=== PATIENT | female | born 1980 ===

== ENCOUNTER 2017-02-14 21:45 | Emergency (ER) | payer SELFPAY ==
[2017-02-14 22:10] VITALS: BP 138/83; PULSE 62; RESP 18; TEMP 98.2; O2SAT 98
--- NOTE | 2017-02-14 22:42 | ED PDOC ---
HPI: CCC, URI, Sore Throat Time Seen by Provider: 02/14/17 22:15 Chief Complaint (Nursing): ENT Problem History Per: Patient Additional Complaint(s): Patient having b/l eye redness, itching w/ yellow discharge. Patient also has throat pain. No fever. (+) sinus tenderness Past Medical History Reviewed: Nursing Documentation, Vital Signs Vital Signs: Last Vital Signs Temp 98.2 F 02/14/17 22:07 Pulse 62 02/14/17 22:07 Resp 18 02/14/17 22:07 BP 138/83 02/14/17 22:07 Pulse Ox 98 02/14/17 22:41 - Medical History PMH: No Chronic Diseases - Surgical History Surgical History: Hernia Repair - Family History Family History: States: No Known Family Hx - Living Arrangements Living Arrangements: With Family - Social History Current smoker - smoking cessation education provided: No Alcohol: None Drugs: Denies - Immunization History Hx Tetanus Toxoid Vaccination: No Hx Influenza Vaccination: No Hx Pneumococcal Vaccination: No - Home Medications Home Medications: Ambulatory Orders Medication Instructions Recorded Ibuprofen [Motrin] 600 mg PO Q6 PRN #30 tab 06/19/13 oxyCODONE/Acetaminophen [Percocet 1 - 2 tab PO Q6 PRN #10 tab 11/18/14 5/325 mg Tab] Ciprofloxacin/Ciprofloxa HCl 500 mg PO BID #14 tab 03/22/16 [Ciprofloxacin] Cyclobenzaprine [Flexeril] 10 mg PO Q8 PRN #15 tab 03/22/16 Naproxen [Naprosyn] 500 mg PO BID #20 tab 03/22/16 traMADol [Ultram] 50 mg PO TID PRN #15 tab 03/22/16 Azithromycin [Zithromax] 500 mg PO DAILY #6 tab 11/08/16 Methylprednisolone [Medrol Dose 4 mg PO DAILY #21 mg 11/08/16 Pack (21 tabs)] Promethazine HCl/Codeine 5 ml PO HS #80 ml 11/08/16 [Prometh-Codein 6.25-10 mg/5 ml] Amoxicillin/Clavulanate [Augmentin 1 tab PO BID #14 tab 02/14/17 875 MG-125 MG] Methylprednisolone [Medrol Dose 4 mg PO DAILY #21 mg 02/14/17 Pack (21 tabs)] - Allergies Allergies/Adverse Reactions: Allergies Allergy/AdvReac Type Severity Reaction Status Date / Time No Known Allergies Allergy Verified 11/08/16 21:30 Review of Systems ROS Statement: Except As Marked, All Systems Reviewed And Found Negative ENT: Positive for: Nose Congestion, Throat Pain Physical Exam - Reviewed Nursing Documentation Reviewed: Yes Vital Signs Reviewed: Yes - Physical Exam Appears: Positive for: Well, Non-toxic, No Acute Distress Head Exam: Positive for: ATRAUMATIC, NORMAL INSPECTION, NORMOCEPHALIC Skin: Positive for: Normal Color, Warm, DRY Eye Exam: Positive for: EOMI, Normal appearance, PERRL ENT: Positive for: Normal ENT Inspection, TM Is/Are (WNL), Nasal Congestion, Other (Sinus tenderness to maxillary). Negative for: Pharyngeal Erythema, Tonsillar Exudate, Tonsillar Swelling Neck: Positive for: Normal, Painless ROM Cardiovascular/Chest: Positive for: Regular Rate, Rhythm Respiratory: Positive for: CNT, Normal Breath Sounds Gastrointestinal/Abdominal: Positive for: Normal Exam, Bowel Sounds, Soft Back: Positive for: Normal Inspection Extremity: Positive for: Normal ROM Neurologic/Psych: Positive for: Alert, Oriented - ECG O2 Sat by Pulse Oximetry: 98 Medical Decision Making Medical Decision Making: Started on Augmentin and Medrol dose pack Disposition - Clinical Impression Clinical Impression: Sinusitis - Patient ED Disposition Is Patient to be Admitted: No - Disposition Disposition: Routine/Home Disposition Time: 23:10 Condition: STABLE Prescriptions: Amoxicillin/Clavulanate [Augmentin 875 MG-125 MG] 1 tab PO BID #14 tab Methylprednisolone [Medrol Dose Pack (21 tabs)] 4 mg PO DAILY #21 mg Instructions: Sinusitis (ED)
== END 2017-02-14 23:12 | disposition home or self-care (01) ==
LOC: H.ER 21:45
DX: J32.9 Chronic sinusitis, unspecified (principal); J02.9 Acute pharyngitis, unspecified; H57.8 Other specified disorders of eye and adnexa

== ENCOUNTER 2017-12-26 21:12 | Emergency (ER) | payer SELFPAY ==
--- NOTE | 2017-12-26 21:49 | ED PDOC ---
HPI: Chest Pain Time Seen by Provider: 12/26/17 21:30 Chief Complaint (Nursing): Chest Pain Chief Complaint (Provider): chest pain History Per: Patient History/Exam Limitations: no limitations Onset/Duration Of Symptoms: Days (2), Waxing/Waning Current Symptoms Are (Timing): Still Present Exacerbating Factors: Turning, Movement, Deep Breathing Additional Complaint(s): 37 y/o female presents with intermittent left-sided chest pain x 2 days. Patient states she woke up with the pain, which is worsened by movement, to touch, and deep breaths. Denies fever, nausea/vomiting, shortness of breath, palpitations, abdominal pain, changes in bowel movements, urinary symptoms, leg pain/swelling, recent travel. Past Medical History Reviewed: Historical Data, Nursing Documentation, Vital Signs Vital Signs: Last Vital Signs Temp 98.4 F 12/26/17 21:23 Pulse 69 12/26/17 21:23 Resp 16 12/26/17 21:23 BP 154/88 H 12/26/17 21:23 Pulse Ox 99 12/27/17 00:07 - Medical History PMH: No Chronic Diseases - Surgical History Surgical History: Hernia Repair - Family History Family History: States: No Known Family Hx - Living Arrangements Living Arrangements: With Family - Immunization History Hx Tetanus Toxoid Vaccination: No Hx Influenza Vaccination: No Hx Pneumococcal Vaccination: No - Home Medications Home Medications: Ambulatory Orders Medication Instructions Recorded Ibuprofen [Motrin] 600 mg PO Q6 PRN #30 tab 06/19/13 oxyCODONE/Acetaminophen [Percocet 1 - 2 tab PO Q6 PRN #10 tab 11/18/14 5/325 mg Tab] Ciprofloxacin/Ciprofloxa HCl 500 mg PO BID #14 tab 03/22/16 [Ciprofloxacin] Cyclobenzaprine [Flexeril] 10 mg PO Q8 PRN #15 tab 03/22/16 Naproxen [Naprosyn] 500 mg PO BID #20 tab 03/22/16 traMADol [Ultram] 50 mg PO TID PRN #15 tab 03/22/16 Azithromycin [Zithromax] 500 mg PO DAILY #6 tab 11/08/16 Methylprednisolone [Medrol Dose 4 mg PO DAILY #21 mg 11/08/16 Pack (21 tabs)] Promethazine HCl/Codeine 5 ml PO HS #80 ml 11/08/16 [Prometh-Codein 6.25-10 mg/5 ml] Amoxicillin/Clavulanate [Augmentin 1 tab PO BID #14 tab 02/14/17 875 MG-125 MG] Methylprednisolone [Medrol Dose 4 mg PO DAILY #21 mg 02/14/17 Pack (21 tabs)] Cyclobenzaprine [Cyclobenzaprine 10 mg PO BID PRN #14 tab 12/27/17 HCl] Naproxen [Naprosyn] 500 mg PO Q12 PRN #20 tablet 12/27/17 - Allergies Allergies/Adverse Reactions: Allergies Allergy/AdvReac Type Severity Reaction Status Date / Time No Known Allergies Allergy Verified 11/08/16 21:30 [place] Risk Score for UA/NSTEMI - [place] Risk Score Age > 64: NO 3 or more CAD Risk Factors: NO Known CAD (Stenosis greater than 50%): NO Aspirin use in past 7 days: NO Severe Angina: NO EKG ST changes greater than 0.5mm: NO Positive Cardiac Marker: NO [place] Score: 0 Risk %: 5% Review of Systems ROS Statement: Except As Marked, All Systems Reviewed And Found Negative Cardiovascular: Positive for: Chest Pain Physical Exam - Reviewed Nursing Documentation Reviewed: Yes Vital Signs Reviewed: Yes - Physical Exam Appears: Positive for: Well, Non-toxic, No Acute Distress Head Exam: Positive for: ATRAUMATIC, NORMAL INSPECTION, NORMOCEPHALIC Skin: Positive for: Normal Color Eye Exam: Positive for: Normal appearance ENT: Positive for: Normal ENT Inspection Cardiovascular/Chest: Positive for: Regular Rate, Rhythm. Negative for: Chest Non Tender (tender to palpate left anterior chest wall; no ecchymosis, edema, flail chest noted) Respiratory: Positive for: Normal Breath Sounds Gastrointestinal/Abdominal: Positive for: Normal Exam Back: Positive for: Normal Inspection Extremity: Positive for: Normal ROM Neurologic/Psych: Positive for: Alert, Oriented - Laboratory Results Result Diagrams: 12/26/17 22:08 12/26/17 22:08 - ECG ECG: Positive for: Viewed By Me (reviewed by ED attending) ECG Rhythm: Positive for: Sinus Rhythm, Nonspecific Changes O2 Sat by Pulse Oximetry: 99 - Radiology X-Ray: Viewed By Me X-Ray Interpretation: No Acute Disease - Progress ED Course And Treament: labs, ekg, chest xray, IV toradol, PO flexeril On re-eval, patient states she is feeling better. Patient educated on findings, discharged with rx Naproxen, Flexeril. Advised follow up PMD 2-3 days. Ice/warm compresses Return precautions given. Disposition - Clinical Impression Clinical Impression: Chest wall pain - Patient ED Disposition Is Patient to be Admitted: No Counseled Patient/Family Regarding: Studies Performed, Diagnosis, Need For Followup, Rx Given - Disposition Disposition: Routine/Home Disposition Time: 00:20 Condition: IMPROVED Prescriptions: Cyclobenzaprine [Cyclobenzaprine HCl] 10 mg PO BID PRN #14 tab PRN Reason: Muscle Spasm Naproxen [Naprosyn] 500 mg PO Q12 PRN #20 tablet PRN Reason: Pain, Moderate (4-7) Instructions: Costochondritis (DC) Forms: [employer] (Vietnamese)
[2017-12-26 22:13] LABS: BASO # 0.1 K/uL (0.0-0.2); BASO % 0.7 % (0.0-2.0); EOS # 0.3 K/uL (0.0-0.7); EOS % 4.1 % (0.0-4.0); HEMOGLOBIN 13.1 g/dL (12.0-16.0); LYMPH # 3.1 K/uL (1.0-4.3); LYMPH % 36.8 % (20.0-40.0); MEAN CELL VOLUME 88.1 fl (81.0-99.0); MEAN CORPUSCULAR HEMOGLOBIN 29.8 pg (27.0-31.0); MEAN CORPUSCULAR HGB CONC 33.9 g/dL (33.0-37.0); MEAN PLATELET VOLUME 9.9 fl (7.2-11.7); MONO # 0.6 K/uL (0.0-0.8); MONO % 7.1 % (0.0-10.0); NEUT # 4.3 K/uL (1.8-7.0); NEUT % 51.3 % (50.0-75.0); NRBC % 0.2 % (0.0-0.0); RBC 4.39 Mil/uL (3.80-5.20); RED CELL DISTRIBUTION WIDTH 13.8 % (11.5-14.5); WHITE BLOOD COUNT 8.5 K/uL (4.8-10.8)
[2017-12-26 22:23] LABS: ALB/GLOB RATIO 1.2 (1.0-2.1); ALBUMIN 4.2 g/dL (3.5-5.0); ALT/SGPT 36 U/L (9-52); AST/SGOT 26 U/L (14-36); BLOOD UREA NITROGEN 17 mg/dl (7-17); CALCIUM 9.1 mg/dL (8.4-10.2); GFR AFRICAN-AMERICAN > 60; GFR NON-AFRICAN AMERICAN > 60
[2017-12-27 00:32] VITALS: BP 124/70; PULSE 76; RESP 14; TEMP 98; O2SAT 98
--- NOTE | 2017-12-27 09:09 | RAD ---
HISTORY: chest pain COMPARISON: Chest radiograph dated 11/08/2016. TECHNIQUE: Chest PA and lateral FINDINGS: LUNGS: No active pulmonary disease. PLEURA: No significant pleural effusion identified. No pneumothorax apparent. CARDIOVASCULAR: Normal. OSSEOUS STRUCTURES: No significant abnormalities. VISUALIZED UPPER ABDOMEN: Normal. OTHER FINDINGS: None. IMPRESSION: No active disease.
--- NOTE | 2017-12-30 18:28 | CARD ---
APPROVED REPORT EKG Measurement Heart [id number] <Conclusion> Normal sinus rhythm Nonspecific ST and T wave abnormality Abnormal ECG
== END 2017-12-27 00:32 | disposition home or self-care (01) ==
LOC: H.ER 21:12
DX: R07.89 Other chest pain (principal)
CPT/HCPCS: 71046; 80053; 84484; 85025; 93005; 99282; J1885

== ENCOUNTER 2018-06-27 18:22 | Emergency (ER) | payer SELFPAY ==
[2018-06-27 18:59] VITALS: BP 144/81; PULSE 73; RESP 18; TEMP 98.4; O2SAT 99
--- NOTE | 2018-06-27 19:25 | ED PDOC ---
Lower Extremity Pain/Injury Time Seen by Provider: 06/27/18 18:30 Chief Complaint (Nursing): Lower Extremity Problem/Injury Chief Complaint (Provider): right foot pain x 2-3 months History Per: Patient History/Exam Limitations: no limitations Onset/Duration Of Symptoms: Days Current Symptoms Are (Timing): Still Present Additional Complaint(s): 38 yo female with no medical problems presents for evaluation of right foot pain x 2-3 months. Pt states she has not taken anything for the pain. Pt currently in sandals because she applied susana wrap to the area. Pt denies trauma. Past Medical History Reviewed: Historical Data, Nursing Documentation, Vital Signs Vital Signs: Last Vital Signs Temp 98.4 F 06/27/18 18:57 Pulse 73 06/27/18 18:57 Resp 18 06/27/18 18:57 BP 144/81 06/27/18 18:57 Pulse Ox 99 06/27/18 18:57 - Medical History PMH: No Chronic Diseases - Surgical History Surgical History: Hernia Repair - Family History Family History: States: No Known Family Hx - Immunization History Hx Tetanus Toxoid Vaccination: No Hx Influenza Vaccination: No Hx Pneumococcal Vaccination: No - Home Medications Home Medications: Ambulatory Orders Medication Instructions Recorded Ibuprofen [Motrin] 600 mg PO Q6 PRN #30 tab 06/19/13 oxyCODONE/Acetaminophen [Percocet 1 - 2 tab PO Q6 PRN #10 tab 11/18/14 5/325 mg Tab] Ciprofloxacin/Ciprofloxa HCl 500 mg PO BID #14 tab 03/22/16 [Ciprofloxacin] Cyclobenzaprine [Flexeril] 10 mg PO Q8 PRN #15 tab 03/22/16 Naproxen [Naprosyn] 500 mg PO BID #20 tab 03/22/16 traMADol [Ultram] 50 mg PO TID PRN #15 tab 03/22/16 Azithromycin [Zithromax] 500 mg PO DAILY #6 tab 11/08/16 Methylprednisolone [Medrol Dose 4 mg PO DAILY #21 mg 11/08/16 Pack (21 tabs)] Promethazine HCl/Codeine 5 ml PO HS #80 ml 11/08/16 [Prometh-Codein 6.25-10 mg/5 ml] Amoxicillin/Clavulanate [Augmentin 1 tab PO BID #14 tab 02/14/17 875 MG-125 MG] Methylprednisolone [Medrol Dose 4 mg PO DAILY #21 mg 02/14/17 Pack (21 tabs)] Cyclobenzaprine [Cyclobenzaprine 10 mg PO BID PRN #14 tab 12/27/17 HCl] Naproxen [Naprosyn] 500 mg PO Q12 PRN #20 tablet 12/27/17 Naproxen [Naprosyn] 500 mg PO BID PRN #20 tablet 06/27/18 - Allergies Allergies/Adverse Reactions: Allergies Allergy/AdvReac Type Severity Reaction Status Date / Time No Known Allergies Allergy Verified 11/08/16 21:30 Review of Systems ROS Statement: Except As Marked, All Systems Reviewed And Found Negative Constitutional: Negative for: Fever, Chills Musculoskeletal: Positive for: Foot Pain Skin: Negative for: Jaundice, Bruising Physical Exam - Reviewed Nursing Documentation Reviewed: Yes Vital Signs Reviewed: Yes - Physical Exam Appears: Positive for: Well, Non-toxic, No Acute Distress Head Exam: Positive for: ATRAUMATIC, NORMAL INSPECTION, NORMOCEPHALIC Skin: Positive for: Normal Color, Warm, DRY Eye Exam: Positive for: Normal appearance ENT: Positive for: Normal ENT Inspection Neck: Positive for: Normal, Painless ROM Cardiovascular/Chest: Negative for: Bradycardia, Tachycardia Respiratory: Negative for: Accessory Muscle Use, Respiratory Distress Back: Positive for: Normal Inspection Extremity: Positive for: Normal ROM, Tenderness (right plantar fasciatis) Neurologic/Psych: Positive for: Alert, Oriented - ECG O2 Sat by Pulse Oximetry: 99 Medical Decision Making Medical Decision Making: Discussed stretching, icing and anti-inflammatory medications with patient. Disposition - Clinical Impression Clinical Impression: Plantar fasciitis - Patient ED Disposition Is Patient to be Admitted: No Counseled Patient/Family Regarding: Diagnosis, Need For Followup, Rx Given - Disposition Referrals: [facility] [Outside] Disposition: Routine/Home Disposition Time: 19:29 Condition: STABLE Prescriptions: Naproxen [Naprosyn] 500 mg PO BID PRN #20 tablet PRN Reason: Pain Instructions: Heel Pain (Caused by Plantar Fasciitis) Print Language: QATARI
== END 2018-06-27 19:55 | disposition home or self-care (01) ==
LOC: H.ER 18:22
DX: M72.2 Plantar fascial fibromatosis (principal)

== ENCOUNTER 2018-10-21 18:51 | Emergency (ER) | payer SELFPAY ==
[2018-10-21 19:06] VITALS: BP 146/86; PULSE 71; RESP 16; TEMP 98.5; O2SAT 99
[2018-10-21] MEDS ORDERED: Tdap Vaccine 0.5 ml Vial (10-64 yrs) IM ONE (19:31)
--- NOTE | 2018-10-21 19:31 | ED PDOC ---
HPI: Trauma/Fall - HPI Time Seen by Provider: 10/21/18 19:07 Chief Complaint (Nursing): Trauma Chief Complaint (Provider): Head Injury History Per: Patient History/Exam Limitations: no limitations Injury Occurred (Timing): Today @ (1000) Additional Complaint(s): 38 year old female presents to the ED for evaluation of a head injury that happened at 1000 this morning. Patient reports she was standing at her sink when the mirror fell off the wall and hit her head, sustaining a laceration which she used coffee grounds to control the bleeding. This afternoon, just prior to arrival, the laceration began bleeding again after showering, prompting evaluation. She took Motrin at 1100, but notes having a mild headache all day described as a throbbing sensation confined to the site of the cut. Otherwise denies loss of consciousness, nausea, vomiting, visual changes, dizziness, foreign body sensation, and other complaints. PMD: Clinic in [place] Tetanus: not UTD Past Medical History Reviewed: Historical Data, Nursing Documentation, Vital Signs Vital Signs: Last Vital Signs Temp 98.5 F 10/21/18 19:03 Pulse 71 10/21/18 19:03 Resp 16 10/21/18 19:03 BP 146/86 10/21/18 19:03 Pulse Ox 99 10/21/18 19:03 - Medical History Other PMH: abdominal hernia - Surgical History Surgical History: Hernia Repair - Family History Family History: States: Unknown Family Hx - Social History Current smoker - smoking cessation education provided: No Alcohol: Social Drugs: Denies - Home Medications Home Medications: Ambulatory Orders Medication Instructions Recorded Ibuprofen [Motrin] 600 mg PO Q6 PRN #30 tab 06/19/13 oxyCODONE/Acetaminophen [Percocet 1 - 2 tab PO Q6 PRN #10 tab 11/18/14 5/325 mg Tab] Ciprofloxacin/Ciprofloxa HCl 500 mg PO BID #14 tab 03/22/16 [Ciprofloxacin] Naproxen [Naprosyn] 500 mg PO BID #20 tab 03/22/16 RX: Cyclobenzaprine [Flexeril] 10 mg PO Q8 PRN #15 tab 03/22/16 RX: traMADol [Ultram] 50 mg PO TID PRN #15 tab 03/22/16 Azithromycin [Zithromax] 500 mg PO DAILY #6 tab 11/08/16 Methylprednisolone [Medrol Dose 4 mg PO DAILY #21 mg 11/08/16 Pack (21 tabs)] Promethazine HCl/Codeine 5 ml PO HS #80 ml 11/08/16 [Prometh-Codein 6.25-10 mg/5 ml] Amoxicillin/Clavulanate [Augmentin 1 tab PO BID #14 tab 02/14/17 875 MG-125 MG] Methylprednisolone [Medrol Dose 4 mg PO DAILY #21 mg 02/14/17 Pack (21 tabs)] Cyclobenzaprine [Cyclobenzaprine 10 mg PO BID PRN #14 tab 12/27/17 HCl] RX: Naproxen [Naprosyn] 500 mg PO Q12 PRN #20 tablet 12/27/17 RX: Naproxen [Naprosyn] 500 mg PO BID PRN #20 tablet 06/27/18 Acetaminophen [Acetaminophen 8 650 mg PO Q8 PRN #21 tablet.er 10/21/18 Hour] - Allergies Allergies/Adverse Reactions: Allergies Allergy/AdvReac Type Severity Reaction Status Date / Time No Known Allergies Allergy Verified 10/21/18 19:02 Review of Systems ROS Statement: Except As Marked, All Systems Reviewed And Found Negative Eyes: Negative for: Vision Change Gastrointestinal: Negative for: Nausea, Vomiting Skin: Positive for: Other (laceration to head) Neurological: Positive for: Headache (mild, described as throbbing to the site of the laceration). Negative for: Dizziness, Other (loss of consciousness) Physical Exam - Reviewed Nursing Documentation Reviewed: Yes Vital Signs Reviewed: Yes - Physical Exam Comments: GENERAL APPEARANCE: Patient is awake, alert, oriented x 3, in no acute distress. Resting comfortably. SKIN: Warm, dry; (-) cyanosis; (-) rash. HEAD: (+) 1.5cm linear superficial laceration with active bleeding to frontal scalp just posterior to hairline, (+) minimal tenderness, (-) visualized foreign body, (-) ecchymosis, (-) edema (-) erythema (-) palpable bony deformity. EYES: (-) conjunctival pallor, (-) scleral icterus. ENMT: (-) facial bone tenderness; mucous membranes are moist. Airway patent, (- ) stridor. NECK: Supple, FROM (-) midline tenderness, (-) stiffness, (-) meningismus CHEST AND RESPIRATORY: (-) rales, (-) rhonchi, (-) wheezes; breath sounds equal bilaterally. Respirations even and nonlabored. HEART AND CARDIOVASCULAR: (-) irregularity EXTREMITIES: (-) deformity. NEURO AND PSYCH: Mental status as above. tooth cutter: Pupils equal and reactive; EOMI and painless; (-) facial asymmetry; tongue and uvula midline. Strength symmetric. Gait: steady. Speech: clear. Cerebellar tests intact. - ECG O2 Sat by Pulse Oximetry: 99 (RA) Pulse Ox Interpretation: Normal Medical Decision Making Medical Decision Making: Initial Impression: scalp laceration, head injury Time: 1929 Initial Plan: --Tetanus booster --Tylenol 650mg PO --Wound repair 2014 Laceration repair performed by To KAPADIA. See procedure note. 2034 On re-evaluation, patient reports improvement of symptoms. On exam, patient remains AAOx3, in no acute distress. Vitals stable. Lab/Diagnostic results d/w the patient in great detail. Diagnosis of scalp laceration, head injury d/w the patient. Based on history, exam and diagnostic results, plan will be for outpatient follow up with PMD. Patient instructed to follow-up with pmd / referral provided / the clinic in 1- 2 days without fail. Advised to take medication as prescribed. Return to the emergency room at any time for any new or worsening symptoms. Patient states she fully agrees with and understands discharge instructions. States that she agrees with the plan and disposition. Verbalized and repeated discharge instructions and plan. I have given the patient opportunity to ask any additional questions. Scribe Attestation: Documented by Dominga Gusman, acting as a scribe for Yusra Ariza PA-C. Provider Scribe Attestation: All medical record entries made by the Scribe were at my direction and personally dictated by me. I have reviewed the chart and agree that the record accurately reflects my personal performance of the history, physical exam, medical decision making, and the department course for this patient. I have also personally directed, reviewed, and agree with the discharge instructions and disposition. Procedures - Laceration/Wound Repair Scalp Laceration Wound Length (cm): 1.5 Wound's Depth, Shape: superficial, linear Wound Explored: clean Irrigated w/ Saline (ccs): 100 Betadine Prep?: No Wound Debrided: minimal Wound Repaired With: Veronica (x3) Layer Closure?: No Wound Complexity: Simple Progress: Patient tolerated procedure well. Educated on wound care. Staple removal in 5 days. Disposition - Clinical Impression Clinical Impression: Head injury, Scalp laceration - Patient ED Disposition Is Patient to be Admitted: No Counseled Patient/Family Regarding: Studies Performed, Diagnosis, Need For Followup, Rx Given - Disposition Referrals: primary, doctor [Other] Disposition: Routine/Home Disposition Time: 20:35 Condition: STABLE Additional Instructions: Retirada de grapas en 5 perez. La atencin mdica de emergencia que recibi hoy se dirigi a maria isabel sntomas agudos. Si le recetaron algn medicamento, llnelo y tmelo segn las indicaciones. Los sntomas pueden tardar varios perez en resolverse. Regrese al Departamento de Emergencias si maria isabel sntomas empeoran, no mejoran o si tiene otros problemas. Comunquese con kang mdico dentro de 2 perez para susanne nueva evaluacin y erin un seguimiento o llame a calin de los mdicos / clnicas a los que santana sido referido y que figuran en el formulario de Informacin de visita al paciente que se incluye en kang [place] de abraham. Lleve todos los documentos que le entregaron al momento del abraham junto con todos los medicamentos que est tomando para kang visit a de seguimiento. Nuestro tratamiento no puede reemplazar la atencin mdica continua por parte de un proveedor de atencin primaria (PCP) fuera del departamento de emergencias. Prescriptions: Acetaminophen [Acetaminophen 8 Hour] 650 mg PO Q8 PRN #21 tablet.er PRN Reason: Headache Instructions: Concussion, Adult (DC), Wound Care, Closed Head Injury (DC), Laceration Repair With Veronica (DC) Forms: [employer] (Swedish) Print Language: KAZAKH - POA Present On Arrival: None
== END 2018-10-21 20:59 | disposition home or self-care (01) ==
LOC: H.ER 18:51
DX: S01.01XA Laceration without foreign body of scalp, initial encounter (principal); W25.XXXA Contact with sharp glass, initial encounter; Y92.002 Bathroom of unspecified non-institutional (private) residence as the place of occurrence of the external cause

== ENCOUNTER 2018-10-26 18:33 | Emergency (ER) | payer SELFPAY ==
[2018-10-26 18:48] VITALS: BP 132/83; PULSE 64; RESP 16; TEMP 98.8; O2SAT 100
--- NOTE | 2018-10-26 20:13 | ED PDOC ---
HPI: Wound Care - HPI Time Seen by Provider: 10/26/18 19:21 Chief Complaint (Nursing): Suture/Staple Removal Chief Complaint (Provider): Suture/Staple Removal History Per: Patient Exam Limitations: no limitations Additional Complaint(s): 38 y/o female presents to the ED for a staple removal of her frontal scalp. PMD: Clinic in [place] Past Medical History Reviewed: Historical Data, Nursing Documentation, Vital Signs Vital Signs: Last Vital Signs Temp 98.8 F 10/26/18 18:47 Pulse 64 10/26/18 18:47 Resp 16 10/26/18 18:47 BP 132/83 10/26/18 18:47 Pulse Ox 100 10/26/18 18:47 - Medical History PMH: No Chronic Diseases - Surgical History Surgical History: Hernia Repair - Family History Family History: States: Unknown Family Hx - Immunization History Hx Tetanus Toxoid Vaccination: No Hx Influenza Vaccination: No Hx Pneumococcal Vaccination: No - Home Medications Home Medications: Ambulatory Orders Medication Instructions Recorded Ibuprofen [Motrin] 600 mg PO Q6 PRN #30 tab 06/19/13 oxyCODONE/Acetaminophen [Percocet 1 - 2 tab PO Q6 PRN #10 tab 11/18/14 5/325 mg Tab] Ciprofloxacin/Ciprofloxa HCl 500 mg PO BID #14 tab 03/22/16 [Ciprofloxacin] Cyclobenzaprine [Flexeril] 10 mg PO Q8 PRN #15 tab 03/22/16 Naproxen [Naprosyn] 500 mg PO BID #20 tab 03/22/16 traMADol [Ultram] 50 mg PO TID PRN #15 tab 03/22/16 Azithromycin [Zithromax] 500 mg PO DAILY #6 tab 11/08/16 Methylprednisolone [Medrol Dose 4 mg PO DAILY #21 mg 11/08/16 Pack (21 tabs)] Promethazine HCl/Codeine 5 ml PO HS #80 ml 11/08/16 [Prometh-Codein 6.25-10 mg/5 ml] Amoxicillin/Clavulanate [Augmentin 1 tab PO BID #14 tab 02/14/17 875 MG-125 MG] Methylprednisolone [Medrol Dose 4 mg PO DAILY #21 mg 02/14/17 Pack (21 tabs)] Cyclobenzaprine [Cyclobenzaprine 10 mg PO BID PRN #14 tab 12/27/17 HCl] Naproxen [Naprosyn] 500 mg PO Q12 PRN #20 tablet 12/27/17 Naproxen [Naprosyn] 500 mg PO BID PRN #20 tablet 06/27/18 Acetaminophen [Acetaminophen 8 650 mg PO Q8 PRN #21 tablet.er 10/21/18 Hour] - Allergies Allergies/Adverse Reactions: Allergies Allergy/AdvReac Type Severity Reaction Status Date / Time No Known Allergies Allergy Verified 10/26/18 18:47 Review of Systems ROS Statement: Except As Marked, All Systems Reviewed And Found Negative Physical Exam - Physical Exam Appears: Positive for: No Acute Distress Head Exam: Positive for: ATRAUMATIC, NORMAL INSPECTION (martinez present ), NORMOCEPHALIC Skin: Positive for: Normal Color, Warm, Dry Eye Exam: Positive for: EOMI, Normal appearance, PERRL Neurologic/Psych: Positive for: Alert, Oriented (x3). Negative for: Motor/Sensory Deficits - ECG O2 Sat by Pulse Oximetry: 100 (RA) Pulse Ox Interpretation: Normal Medical Decision Making Medical Decision Making: Time: 19:30 Martinez removed from front scalp with no difficulty. Patient tolerated procedure well and is stable for discharge. Scribe Attestation: Documented by Hilda Herrera , acting as a scribe for Annabella Reyes. Provider Scribe Attestation: All medical record entries made by the Scribe were at my direction and personally dictated by me. I have reviewed the chart and agree that the record accurately reflects my personal performance of the history, physical exam, medical decision making, and the department course for this patient. I have also personally directed, reviewed, and agree with the discharge instructions and disposition. Disposition - Clinical Impression Clinical Impression: Encounter for staple removal - Patient ED Disposition Is Patient to be Admitted: No - Disposition Disposition: Routine/Home Disposition Time: 19:30 Condition: STABLE Instructions: Staple Removal Forms: [employer] ([place]ian)
== END 2018-10-26 20:52 | disposition home or self-care (01) ==
LOC: H.ER 18:33
DX: Z48.02 Encounter for removal of sutures (principal)